=== PATIENT | female | born 1985 | race Asian ===

== ENCOUNTER 2020-07-30 23:58 | Emergency (ER) | payer OTHER ==
[~2020-07-30] VITALS: Ht 160 cm; Wt 48.1 kg
[2020-07-31 00:02] VITALS: Ht 160 cm; Wt 48.1 kg
[2020-07-31 00:26] VITALS: BP 118/39
== END 2020-07-31 00:26 | disposition home or self-care (01) ==
LOC: ED 23:58
DX: H60.93 Unspecified otitis externa, bilateral (principal)